=== PATIENT | male | born 1975 | race Caucasian/White ===

== ENCOUNTER 2021-05-26 17:06 | Emergency (ER) | payer OTHER ==
[2021-05-26 18:41] VITALS: TEMP 97.9
[2021-05-26] MEDS ORDERED: IBUPROFEN ORAL SUSP 100 MG/5 ML CUP PO STA (20:35)
[2021-05-26] MEDS ORDERED: BACITRACIN OINT 1 EACH PACKET TOPICAL STA (20:35)
[2021-05-26] MEDS ORDERED: LIDOCAINE 1% INJ 10MG/ML (20 ML MDV) SQ ONE (20:35)
[2021-05-26] MEDS ORDERED: DIPH,PERTUS(ACELL)TETVAC-LF 0.5 ML VIAL IM ONE (20:35)
[2021-05-26] MEDS ORDERED: GELATIN SPONGE,ABSORB (SMALL) 1 EACH SPONGE TOPICAL STA (20:41)
--- NOTE | 2021-05-26 22:01 | ED ---
Wound/Laceration HPI - General Chief Complaint: Wound/Laceration Stated Complaint: [facility] - finger lac Time Seen by Provider: 05/26/21 19:51 Source: patient Mode of arrival: ambulatory Limitations: no limitations - History of Present Illness Initial Comments: 46 year-old male patient presents to the emergency department for evaluation of right index finger laceration. States that he was cutting onions at work and accidentally cut his finger. He denies use of blood thinners states it does involve the nail. He is unsure when his last tetanus vaccine was given. He did not take anything for pain. Denies any numbness, tingling, or difficulty with range of motion. Denies any other injuries or concerns. - Related Data Allergies Allergy/AdvReac Type Severity Reaction Status Date / Time No Known Allergies Allergy Verified 05/26/21 18:37 Review of Systems ROS Statement: Those systems with pertinent positive or pertinent negative responses have been documented in the HPI. ROS Other: All systems not noted in ROS Statement are negative. Past Medical History Past Medical History: No Reported History History of Any Multi-Drug Resistant Organisms: None Reported Past Surgical History: No Surgical Hx Reported Past Psychological History: Anxiety Smoking Status: Never smoker Past Alcohol Use History: None Reported Past Drug Use History: None Reported General Exam Limitations: no limitations General appearance: alert, in no apparent distress, other (This is a well- developed, well-nourished adult male patient in no acute distress.) ENT exam: Present: normal exam Respiratory exam: Present: normal lung sounds bilaterally. Absent: respiratory distress, wheezes, rales, rhonchi, stridor Cardiovascular Exam: Present: regular rate, normal rhythm, normal heart sounds. Absent: systolic murmur, diastolic murmur, rubs, gallop, clicks Extremities exam: Present: full ROM, normal capillary refill, other (There is laceration noted to the right index finger, tip of the finger over the medial aspect reveals a near complete skin avulsion with involvement of the distal nail. No active bleeding. Full range of motion intact. Radial pulses 2+.). Absent: normal inspection, tenderness, pedal edema, joint swelling, calf tenderness Neurological exam: Present: alert, oriented X3, CN II-XII intact Psychiatric exam: Present: normal affect, normal mood Skin exam: Present: warm, dry, intact, normal color. Absent: rash Course Vital Signs 05/26/21 05/26/21 18:38 22:37 Temperature 97.9 F Pulse Rate 85 72 Respiratory 20 18 Rate Blood Pressure 165/90 158/80 O2 Sat by Pulse 98 100 Oximetry Procedures - Laceration Laceration #1 Consent Obtained: verbal consent Indication: laceration Site: hand (Right index finger) Size (cm): 2 Depth: simple, single layer Anesthetic Used: lidocaine 1% Anesthesia Technique: local infiltration Amount (mls): 2 Pre-repair: irrigated extensively Additional Comments: Trimmed away thin skin flap. Applied gelfoam and pressure. Bleeding was controlled. Applied dressing. Disposition Clinical Impression: Avulsion of skin of index finger, Injury of right index finger Disposition: HOME SELF-CARE Condition: Good Instructions (If sedation given, give patient instructions): Skin Avulsion (ED) Additional Instructions: Keep wound clean and dry. Cleanse twice daily with warm water and to bacteria so. [place] the primary care physician for recheck in 1-2 days. Return for any new, worsening, or concerning symptoms. Is patient prescribed a controlled substance at d/c from ED?: No Referrals: Marion Guzmán MD [Primary Care Provider] - 1-2 days Time of Disposition: 22:01
[2021-05-26 22:46] VITALS: BP 158/80; PULSE 72; RESP 18
== END 2021-05-26 22:37 | disposition home or self-care (01) ==
LOC: EC 17:06
DX: S61.210A Laceration without foreign body of right index finger without damage to nail, initial encounter (principal); F41.9 Anxiety disorder, unspecified; W26.0XXA Contact with knife, initial encounter
CPT/HCPCS: 99282; 90471; 90715; J2001